=== PATIENT | female | born 1960 | race Caucasian/White ===

== ENCOUNTER 2017-12-29 12:22 | Inpatient (IN) | payer OTHER ==
[~2017-12-29] VITALS: Ht 162.6 cm; Wt 48.6 kg
[2017-12-29] MEDS ORDERED: FOLI1 PO (12:26)
[2017-12-29] MEDS ORDERED: THIA100T13 PO (12:26)
[2017-12-29] MEDS ORDERED: NALT50TA6 PO (12:26)
[2017-12-29] MEDS ORDERED: LORA1TAB3 PO (12:26)
[2017-12-29] MEDS ORDERED: DIAZEPAM 5 MG/ML 2 ML SYRINGE IVP ONE (12:45)
[2017-12-29] MEDS ORDERED: SODIUM CHLORIDE 0.9% 1,000 ML IV ONE (12:45)
[2017-12-29 12:57] LABS: BASOPHILS % (AUTO) 1.3 % (0.0-2.0); EOSINOPHILS % (AUTO) 0.2 % (1.0-6.0); HEMATOCRIT 36.2 % (36-46); HEMOGLOBIN 12.3 g/dL (12.0-16.0); LYMPHOCYTES # (AUTO) 0.7 K/uL (1.0-4.8); LYMPHOCYTES % (AUTO) 21.2 % (22.0-44.0); MEAN CORPUSCULAR HEMOGLOBIN 30.6 pg (26.0-34.0); MEAN CORPUSCULAR HGB CONC 33.9 G/dL (31.0-37.0); MEAN CORPUSCULAR VOLUME 90 fL (80-100); MONOCYTES # (AUTO) 0.4 K/uL (0.1-1.0); MONOCYTES % (AUTO) 10.4 % (2.0-9.0); NEUTROPHILS # (AUTO) 2.3 K/uL (1.8-7.7); NEUTROPHILS % (AUTO) 66.9 % (40.0-70.0); RED CELL DISTRIBUTION WIDTH 15.8 % (11.5-14.5)
[2017-12-29 13:06] LABS: ANION GAP 18 mmol/L (8-16); CALCIUM, TOTAL 8.8 mg/dL (8.8-10.5); CARBON DIOXIDE 24 mmol/L (22-29); CHLORIDE 90 mmol/L (98-107); CREATININE 0.53 mg/dL (0.60-1.30); GLOMERULAR FILTR. RATE CALC > 60 mL/min (>60); GLUCOSE,RANDOM 102 mg/dL (70-110); SODIUM SERUM 132 mmol/L (136-145); UREA NITROGEN, BLOOD 4 mg/dL (7-18)
[2017-12-29 13:12] LABS: ALANINE AMINOTRANSFERASE 107 U/L (12-78); ALBUMIN 3.7 g/dL (3.4-5.0); ALKALINE PHOSPHATASE 438 U/L (46-116); ASPARTATE AMINOTRANSFERASE 304 U/L (15-37); BILIRUBIN,TOTAL 2.3 mg/dL (0.1-1.0); TOTAL PROTEIN, SERUM 7.9 g/dL (6.4-8.2)
[2017-12-29 13:33] LABS: PLATELET COUNT (AUTO) 64 K/uL (150-450)
[2017-12-29] MEDS ORDERED: DIAZEPAM 5 MG/ML 2 ML SYRINGE IVP PRN (14:00)
[2017-12-29] MEDS ORDERED: ONDANSETRON HCL 4 MG/2 ML VIAL IVP PRN (14:00)
[2017-12-29 15:17] VITALS: BP 147/75
[2017-12-29] MEDS ORDERED: POTASSIUM CHL 10 MEQ/WATER 50 ML IV PRN (15:45)
[2017-12-29] MEDS ORDERED: MAGNESIUM SULFATE 4 GM/WATER 100 ML IV PRN (15:45)
[2017-12-29] MEDS ORDERED: POTASSIUM CHLORIDE 20 MEQ ER TABLET PO PRN (15:45)
[2017-12-29] MEDS ORDERED: MAGNESIUM SULFATE 2 GM, MVI, ADULT NO.1 WITH VIT K 10 ML, THIAMINE HCL 100 MG, FOLIC AC... IV ONE ×5 (15:45)
[2017-12-29] MEDS ORDERED: LORazepam 2 MG/ML VIAL IVP PRN (15:45)
[2017-12-29] MEDS ORDERED: MAGNESIUM SULFATE 2 GM/WATER 50 ML IV PRN (15:45)
[2017-12-29 19:37] VITALS: BP 159/102
[2017-12-29] MEDS: ChlordiazePOXIDE HCL 10 MG CAPSULE PO SCH (19:44)
[2017-12-29] MEDS: MAGNESIUM OXIDE 400 MG TABLET PO PRN ×2 (19:45→23:31)
[2017-12-29 20:15] VITALS: BP 138/76
[2017-12-30 00:21] VITALS: BP 141/77
[2017-12-30] MEDS: MAGNESIUM OXIDE 400 MG TABLET PO PRN (04:11)
[2017-12-30 06:45] LABS: BASOPHILS % (AUTO) 0.9 % (0.0-2.0); HEMATOCRIT 34.6 % (36-46); HEMOGLOBIN 11.8 g/dL (12.0-16.0); LYMPHOCYTES # (AUTO) 0.5 K/uL (1.0-4.8); LYMPHOCYTES % (AUTO) 22.6 % (22.0-44.0); MEAN CORPUSCULAR HGB CONC 34.1 G/dL (31.0-37.0); MEAN CORPUSCULAR VOLUME 91 fL (80-100); MONOCYTES # (AUTO) 0.3 K/uL (0.1-1.0); MONOCYTES % (AUTO) 14.4 % (2.0-9.0); NEUTROPHILS # (AUTO) 1.4 K/uL (1.8-7.7); NEUTROPHILS % (AUTO) 61.1 % (40.0-70.0); RED BLOOD CELL COUNT(AUTO) 3.81 MIL/uL (4.00-5.20); RED CELL DISTRIBUTION WIDTH 15.8 % (11.5-14.5)
[2017-12-30 06:57] LABS: ALANINE AMINOTRANSFERASE 103 U/L (12-78); ALBUMIN 3.2 g/dL (3.4-5.0); ALKALINE PHOSPHATASE 432 U/L (46-116); ANION GAP 8 mmol/L (8-16); ASPARTATE AMINOTRANSFERASE 322 U/L (15-37); BILIRUBIN,TOTAL 3.8 mg/dL (0.1-1.0); CALCIUM, TOTAL 8.6 mg/dL (8.8-10.5); CARBON DIOXIDE 28 mmol/L (22-29); CHLORIDE 95 mmol/L (98-107); CREATININE 0.56 mg/dL (0.60-1.30); GLOMERULAR FILTR. RATE CALC > 60 mL/min (>60); GLUCOSE,RANDOM 102 mg/dL (70-110); POTASSIUM 3.3 mmol/L (3.5-5.1); SODIUM SERUM 131 mmol/L (136-145); TOTAL PROTEIN, SERUM 6.9 g/dL (6.4-8.2); UREA NITROGEN, BLOOD 7 mg/dL (7-18)
[2017-12-30 07:10] VITALS: BP 126/79
[2017-12-30 07:30] LABS: PLATELET COUNT (AUTO) 46 K/uL (150-450)
[2017-12-30] MEDS: ChlordiazePOXIDE HCL 10 MG CAPSULE PO SCH (08:37)
[2017-12-30] MEDS ORDERED: MULTIVITAMINS WITH MINERALS, THERAPEUTIC TABLET PO SCH (09:00)
[2017-12-30 11:37] VITALS: BP 136/78
[2017-12-30 15:05] VITALS: BP 149/92
== END 2017-12-30 16:15 | disposition left against medical advice (07) | DRG 280 ==
LOC: EMS 12:27 → 6N 13:54
PROVIDERS: ADMIT Internal Medicine; ATTEND Internal Medicine
DX: K70.30 Alcoholic cirrhosis of liver without ascites (principal); K70.10 Alcoholic hepatitis without ascites; E43 Unspecified severe protein-calorie malnutrition; D61.818 Other pancytopenia; R45.851 Suicidal ideations; E55.9 Vitamin D deficiency, unspecified; F41.9 Anxiety disorder, unspecified; R74.0 Nonspecific elevation of levels of transaminase and lactic acid dehydrogenase [LDH]; F10.129 Alcohol abuse with intoxication, unspecified; Z53.21 Procedure and treatment not carried out due to patient leaving prior to being seen by health care provider; Z68.1 Body mass index [BMI] 19.9 or less, adult; F32.9 Major depressive disorder, single episode, unspecified; F17.210 Nicotine dependence, cigarettes, uncomplicated; J44.9 Chronic obstructive pulmonary disease, unspecified; Z71.6 Tobacco abuse counseling; Z71.41 Alcohol abuse counseling and surveillance of alcoholic; E87.1 Hypo-osmolality and hyponatremia; Z91.19 Patient's noncompliance with other medical treatment and regimen; Y90.9 Presence of alcohol in blood, level not specified
CPT/HCPCS: 76705; 82306; 83735; 96374; 99285; G0480; J2060; J3411; J3475; J3490; J7030